=== PATIENT | male | born 1975 | race Caucasian/White ===

== ENCOUNTER 2021-07-28 10:47 | Emergency (ER) | payer MEDICAID ==
[~2021-07-28] VITALS: Ht 188 cm; Wt 97.7 kg
[2021-07-28] MEDS ORDERED: tamsulosin 0.4mg capsule PO ONE (11:25)
[2021-07-28] MEDS ORDERED: acetaminophen 325mg tablet PO ONE (11:25)
[2021-07-28] MEDS ORDERED: ONDA4TAB6 PO (11:25)
[2021-07-28] MEDS ORDERED: FLO0.4C PO (11:25)
[2021-07-28] MEDS ORDERED: DOXY-11 PO (11:25)
[2021-07-28 11:46] LABS: CLARITY,URINE CLOUDY (Clear); COLOR,URINE YELLOW (Yellow); GLUCOSE, URINE NEGATIVE (Neg); KETONES,URINE NEGATIVE (Neg); LEUKOCYTE ESTERASE ,URINE NEGATIVE (Neg); NITRITES, URINE NEGATIVE (Neg); OCCULT BLOOD,URINE NEGATIVE (Neg); PROTEIN,URINE NEGATIVE (Neg); UA COLLECTION TYPE NON-SPECIFIED; UROBILINOGEN,URINE 0.2 E.U/dL (0.2-1.0)
[2021-07-28 11:52] VITALS: BP 161/131
[2021-07-28 11:52] LABS: MUCUS STRANDS MODERATE /LPF (Neg)
[2021-07-28 11:53] LABS: BACTERIA,URINE 1+ /HPF (Neg); RBC,URINE 0-2 /HPF (0-2)
[2021-07-28 11:54] LABS: SQUAMOUS EPITHELIAL CELL,UR MODERATE /LPF (FEW)
== END 2021-07-28 11:54 | disposition home or self-care (01) ==
LOC: ER 10:48
DX: N53.12 Painful ejaculation (principal); R39.11 Hesitancy of micturition; R10.31 Right lower quadrant pain; Z88.0 Allergy status to penicillin; Z88.5 Allergy status to narcotic agent; Z88.8 Allergy status to other drugs, medicaments and biological substances; Z79.2 Long term (current) use of antibiotics; Z79.899 Other long term (current) drug therapy
CPT/HCPCS: 81001; 87077; 87088; 87186; 99283

== ENCOUNTER 2022-06-22 10:03 | Emergency (ER) | payer MEDICAID ==
[~2022-06-22] VITALS: Ht 188 cm; Wt 99.5 kg
[~2022-06-22 10:03] MED LIST: ONDA4TAB6 PO
[2022-06-22 10:15] VITALS: BP 144/102
[2022-06-23] MEDS ORDERED: CIPR-202 PO (22:24)
== END 2022-06-22 14:22 | disposition left against medical advice (07) ==
LOC: ER 10:06
DX: N50.82 Scrotal pain (principal); Z53.21 Procedure and treatment not carried out due to patient leaving prior to being seen by health care provider

== ENCOUNTER 2022-06-23 17:32 | Emergency (ER) | payer MEDICAID ==
[~2022-06-23] VITALS: Ht 188 cm; Wt 100.0 kg
[2022-06-23] MEDS ORDERED: CIPR-202 PO (22:24)
[2022-06-23] MEDS ORDERED: ibuprofen tablet 400 MG TABLET PO ONE (22:25)
[2022-06-23] MEDS ORDERED: acetaminophen 325mg tablet PO ONE (22:25)
[2022-06-23 22:59] VITALS: BP 165/114
== END 2022-06-23 23:03 | disposition home or self-care (01) ==
LOC: ER 17:33
DX: N50.811 Right testicular pain (principal); Z88.0 Allergy status to penicillin; Z88.5 Allergy status to narcotic agent; Z88.8 Allergy status to other drugs, medicaments and biological substances; Z88.2 Allergy status to sulfonamides; Z79.899 Other long term (current) drug therapy
CPT/HCPCS: 99283

== ENCOUNTER 2023-08-04 16:20 | Emergency (ER) | payer MEDICAID, OTHER ==
[~2023-08-04] VITALS: Ht 188 cm; Wt 98.3 kg
[2023-08-04 16:46] VITALS: RESP 16
[2023-08-04 17:35] LABS: BILIRUBIN,URINE NEGATIVE (Neg); CLARITY,URINE CLEAR (Clear); COLOR,URINE YELLOW (Yellow); GLUCOSE, URINE NEGATIVE (Neg); KETONES,URINE TRACE mg/dl (Neg); LEUKOCYTE ESTERASE ,URINE SMALL (Neg); NITRITES, URINE NEGATIVE (Neg); OCCULT BLOOD,URINE NEGATIVE (Neg); PROTEIN,URINE NEGATIVE (Neg); UROBILINOGEN,URINE 0.2 E.U/dL (0.2-1.0)
[2023-08-04 17:42] LABS: BACTERIA,URINE 2+ /HPF (Neg); UA COLLECTION TYPE URINAL; WBC,URINE 30-50 /HPF (0-4)
[2023-08-04 17:43] VITALS: BP 158/113; PULSE 87; TEMP 98; O2SAT 100
[2023-08-04 17:43] LABS: MUCUS STRANDS NONE SEEN /LPF (Neg); SQUAMOUS EPITHELIAL CELL,UR MODERATE /LPF (FEW); TRANSITIONAL EPI CELLS,URINE FEW /HPF; WBC CLUMPS,URINE FEW /HPF (NEGATIVE)
== END 2023-08-05 00:02 | disposition left against medical advice (07) ==
LOC: ER 16:21
DX: L98.9 Disorder of the skin and subcutaneous tissue, unspecified (principal); Z53.21 Procedure and treatment not carried out due to patient leaving prior to being seen by health care provider; Z79.899 Other long term (current) drug therapy
CPT/HCPCS: 81001; 87088; 99281

== ENCOUNTER 2023-08-09 14:23 | Emergency (ER) | payer MEDICAID ==
[~2023-08-09] VITALS: Ht 188 cm; Wt 99.2 kg
--- NOTE | 2023-08-09 14:32 | NUR ---
MSE COMPLETED BY DAVID RIVAS
[2023-08-09 15:15] LABS: BASOPHILS # (AUTO) 0.1 X10'3 (0-0.2); BASOPHILS % (AUTO) 0.4 % (0-1); EOSINOPHILS # (AUTO) 0.1 X10'3 (0-0.9); EOSINOPHILS % (AUTO) 0.8 % (0-6); HEMOGLOBIN 14.5 g/dl (14.0-17.9); LYMPHOCYTES # (AUTO) 1.5 X10'3 (1.1-4.8); LYMPHOCYTES % (AUTO) 10.6 % (21-51); MEAN CORPUSCULAR HEMOGLOBIN 28.6 PG (27.0-31.0); MEAN CORPUSCULAR VOLUME 86.8 FL (78-98); MONOCYTES # (AUTO) 1.4 X10'3 (0-0.9); NEUTROPHILS # (AUTO) 11.1 X10'3 (1.8-7.7); NEUTROPHILS % (AUTO) 78.2 % (42-75); PLATELET COUNT 375 X10'3 (140-440); RED BLOOD COUNT 5.07 X10'6 (4.70-6.10); RED CELL DISTRIBUTION WIDTH 13.6 % (11.5-14.5); WHITE BLOOD COUNT 14.2 X10'3 (4.5-11.0)
[2023-08-09 15:17] LABS: BILIRUBIN,URINE NEGATIVE (Neg); CLARITY,URINE SLIGHTLY CLOUDY (Clear); COLOR,URINE YELLOW (Yellow); GLUCOSE, URINE NEGATIVE (Neg); KETONES,URINE NEGATIVE (Neg); LEUKOCYTE ESTERASE ,URINE SMALL (Neg); NITRITES, URINE NEGATIVE (Neg); OCCULT BLOOD,URINE NEGATIVE (Neg); PH,URINE 5.5 (4.8-8.0); PROTEIN,URINE NEGATIVE (Neg); UROBILINOGEN,URINE 0.2 E.U/dL (0.2-1.0)
[2023-08-09 15:22] LABS: UA COLLECTION TYPE NON-SPECIFIED
[2023-08-09 15:23] LABS: MUCUS STRANDS MODERATE /LPF (Neg); SQUAMOUS EPITHELIAL CELL,UR MODERATE /LPF (FEW); WBC CLUMPS,URINE FEW /HPF (NEGATIVE); WBC,URINE 50-100 /HPF (0-4)
[2023-08-09 15:24] LABS: BACTERIA,URINE 1+ /HPF (Neg); TRANSITIONAL EPI CELLS,URINE MODERATE /HPF
[2023-08-09 15:32] LABS: ALANINE AMINOTRANSFERASE 15 U/L (12-78); ALBUMIN 3.4 G/DL (3.4-5.0); ALBUMIN/GLOBULIN RATIO 0.7 (1.1-1.5); ALKALINE PHOSPHATASE 105 IU/L (46-116); ANION GAP 9 (8-16); ASPARTATE AMINO TRANSFERASE 19 U/L (10-37); BILIRUBIN,TOTAL 0.5 MG/DL (0.1-1.0); BLOOD UREA NITROGEN 13 MG/DL (7-18); BUN/CREATININE RATIO 15.3 (10.0-20.0); C-REACTIVE PROTEIN 4.23 MG/DL (0.0-0.5); CALCIUM 9.3 MG/DL (8.5-10.1); CHLORIDE 99 MMOL/L (99-107); CREATININE 0.85 MG/DL (0.60-1.10); GLUCOSE 93 MG/DL (70-104); POTASSIUM 4.2 MMOL/L (3.5-5.1); SODIUM 133 MMOL/L (135-145); TOTAL CARBON DIOXIDE 25.5 MMOL/L (24-32); TOTAL PROTEIN 8.3 G/DL (6.4-8.2); eCRCL 126 ML/MIN; eGFR > 90 ML/MIN
[2023-08-09 18:58] VITALS: TEMP 98.2
[2023-08-09 19:33] VITALS: BP 130/98; PULSE 84; O2SAT 98
[2023-08-09] MEDS ORDERED: gentamicin 40 MG/1 ML inj IM STA (20:01)
[2023-08-09] MEDS ORDERED: azithromycin 250mg tablet PO ONE (20:05)
[2023-08-09] MEDS ORDERED: LIDOCAINE 1%/EPI 1:100,000 inj. 10 ML multi-dose vial SQ ONE (20:20)
[2023-08-09] MEDS ORDERED: LIDOcaine 1% W/epiNEPHrine 1:100,000 20ml vial SQ ONE (20:20)
[2023-08-09] MEDS ORDERED: CLIN300C3 PO (21:41)
[2023-08-09] MEDS ORDERED: IBUP-1984 PO (21:41)
[2023-08-09] MEDS ORDERED: ketorolac trometh. 30mg/ml inj. IM ONE (21:45)
[2023-08-09 21:50] VITALS: RESP 16
== END 2023-08-09 22:05 | disposition home or self-care (01) ==
LOC: ER 14:24
DX: L02.415 Cutaneous abscess of right lower limb (principal); Z88.0 Allergy status to penicillin; Z88.5 Allergy status to narcotic agent; Z79.899 Other long term (current) drug therapy
CPT/HCPCS: 10060; 36415; 71045; 76870; 80053; 81001; 83605; 84145; 85025; 86140; 87040; 87088; 87491; 87591; 93976; 96372; 99285; A6266; J1580; J1885; J7030; A6258; A6446; A6449

== ENCOUNTER 2023-12-29 12:36 | Emergency (ER) | payer MEDICAID ==
[~2023-12-29] VITALS: Ht 188 cm; Wt 104.5 kg
[2023-12-29 13:16] VITALS: PULSE 86
[2023-12-29] MEDS ORDERED: LOPE-190 PO (13:29)
[2023-12-29] MEDS ORDERED: MECL-302 PO (14:14)
[2023-12-29] MEDS: ondansetron 4mg rapidly disintigrating tab PO ONE (14:16)
[2023-12-29] MEDS: meclizine 12.5mg tablet PO ONE (14:16)
[2023-12-29 14:33] VITALS: BP 120/76; RESP 14; TEMP 97.6; O2SAT 98
== END 2023-12-29 14:36 | disposition home or self-care (01) ==
LOC: ER 12:36
DX: R42 Dizziness and giddiness (principal); R11.0 Nausea; Z88.0 Allergy status to penicillin; Z88.5 Allergy status to narcotic agent; Z91.041 Radiographic dye allergy status; Z79.899 Other long term (current) drug therapy
CPT/HCPCS: 71045; 99284; J8597